=== PATIENT | male | born 1955 | race Caucasian/White ===

== ENCOUNTER → 2017-01-08 10:03 | Outpatient (CLI) | payer MEDICARE | END | disposition home or self-care (01) | LOC: D.CT 10:03 | DX: R91.8 Other nonspecific abnormal finding of lung field (principal) ==

== ENCOUNTER 2017-02-24 19:08 | Emergency (ER) | payer MEDICARE ==
[2017-02-24 21:05] LABS: BASOPHILS 0.1 % (0-2); EOSINOPHILS 1.4 % (0-7); HEMATOCRIT 45.2 % (42.0-54.0); HEMOGLOBIN 15.1 g/dL (13.5-17.5); IMMATURE GRANULOCYTES 0.4 % (0-5); LYMPHOCYTES 21.6 % (15-50); MCH 31.1 pg (26.0-34.0); MCHC 33.4 g/dL (31.0-37.0); MCV 93.2 fL (80.0-100.0); MEAN PLATELET VOLUME 10.6 fL (7.4-10.4); MONOCYTES 7.5 % (2-11); PLATELET COUNT 234 10x3/uL (130-400); RBC 4.85 10x6/uL (4.20-6.10); RDW 13.1 % (11.5-14.5); WBC 9.3 10x3/uL (4.8-10.8)
[2017-02-24 21:29] LABS: ALBUMIN 3.7 g/dL (3.4-5.0); ANION GAP 12.8 mmol/L (8-16); BILIRUBIN - TOTAL 0.63 mg/dL (0.2-1.3); CALCIUM 9.8 mg/dL (8.5-10.1); CARBON DIOXIDE 26.4 mmol/L (21.0-32.0); CREATININE - SERUM 1.3 mg/dL (0.6-1.3); POTASSIUM - SERUM 4.2 mmol/L (3.5-5.1); PROTEIN - SERUM 7.1 g/dL (6.4-8.2)
== END 2017-02-24 21:30 | disposition home or self-care (01) ==
LOC: D.ER 19:08
PROVIDERS: Nurse Practitioner Family
DX: S02.2XXA Fracture of nasal bones, initial encounter for closed fracture (principal); W19.XXXA Unspecified fall, initial encounter; Y93.89 Activity, other specified; Y92.019 Unspecified place in single-family (private) house as the place of occurrence of the external cause; F31.9 Bipolar disorder, unspecified; F41.9 Anxiety disorder, unspecified; K21.9 Gastro-esophageal reflux disease without esophagitis; F17.200 Nicotine dependence, unspecified, uncomplicated

== ENCOUNTER → 2017-03-17 08:58 | Outpatient (CLI) | payer MEDICARE | END | disposition home or self-care (01) | LOC: D.CT 08:58 | DX: R93.8 Abnormal findings on diagnostic imaging of other specified body structures (principal) ==

== ENCOUNTER 2017-05-20 07:49 | Outpatient (CLI) | payer MEDICARE ==
[~2017-05-20] VITALS: Ht 181.6 cm; Wt 104.5 kg
--- NOTE | ~2017-05-20 | OP ---
PATIENT NAME: JL DYKES MEDICAL RECORD: [id number] :55 LOCATION:[facility] ADMISSION DATE: SURGEON: ISAAC TAI MD OPERATION DATE: 05/20/17 DATE OF OPERATION: 05/20/2017 PROCEDURE: Fiberoptic bronchoscopy. INDICATION: Mass, right middle lobe. Procedure was carried out to inspect the airway and to get specimen for histopathology and cytology. MONITORING: EKG, pulse, and blood pressure were monitored throughout the procedure. MEDICATIONS: Versed 8 mg IV in divided doses, fentanyl 100 mcg IV in divided doses, atropine 0.6 mg. PROCEDURE IN DETAIL: After obtaining conscious sedation, the fiberoptic bronchoscope was easily passed through the mouth. The epiglottis was normal. The vocal cords were normal, moving equally on phonation. The main trachea was normal. The glenn was sharp. There was fresh blood in the right main bronchus. The left main bronchus was normal. The subsegment to the left upper lobe lingula and left lower lobe within normal range. No endobronchial lesion was seen. Fresh blood in the right bronchus intermedius and the blood was coming from the medial segment of the right middle lobe. After using cold saline, the lesion was visualized, but there was still small fresh blood oozing out. The right lower lobe subsegments were within normal range. Specimen endobronchial biopsy times 1 from the medial segment of the right middle lobe was obtained and sent for histopathology. Washing was obtained from the right middle lobe, right lower lobe and sent for cytology, routine culture and sensitivity, AFB and fungus. Complication was nearly 5 blood loss before stopping the procedure, the active bleeding was stopped using cold saline as well as epinephrine diluted in normal saline. TRANSINT:[id number] Voice Confirmation ID: [id number] DOCUMENT ID: [id number] ISAAC TAI MD CC: VIKA GARNICA DO [id number] DICTATION DATE: 05/20/17 1104 [employer] TECHNICIAN: 05/20/17 1318 [facility] [address] [place] [id number]
[2017-05-20] MEDS ORDERED: PROTONIX40 MG PO (08:36)
[2017-05-20] MEDS ORDERED: CLARITIN 10 MG10 MG PO (08:36)
[2017-05-20] MEDS ORDERED: LITHIUM CARBON300 MG PO (08:37)
[2017-05-20] MEDS ORDERED: INDERAL10 MG PO (08:37)
[2017-05-20] MEDS ORDERED: DEPAKOTE500 MG PO (08:37)
[2017-05-20] MEDS ORDERED: PROZAC10 MG PO (08:38)
[2017-05-20] MEDS ORDERED: BUPROPION HCL100 MG PO (08:39)
[2017-05-20] MEDS ORDERED: COLACE100 MG PO (08:39)
[2017-05-20 08:41] VITALS: BP 105/63; Ht 181.6 cm; Wt 104.5 kg
[2017-05-20 08:41] LABS: HEMATOCRIT 42.9 % (42.0-54.0); LYMPHOCYTES 35.7 % (15-50); MCH 31.3 pg (26.0-34.0); MCV 89.6 fL (80.0-100.0); MEAN PLATELET VOLUME 9.3 fL (7.4-10.4); NEUTROPHILS 57.1 % (40-80); PLATELET COUNT 256 10x3/uL (130-400); RBC 4.79 10x6/uL (4.20-6.10); RDW 12.3 % (11.5-14.5); WBC 9.1 10x3/uL (4.8-10.8)
[2017-05-20 08:51] LABS: APTT 31.6 SECONDS (22.8-39.4); INR 0.96 (0.85-1.17); PROTIME 12.6 SECONDS (11.6-15.0)
[2017-05-20] MEDS ORDERED: SEROQUEL25 MG PO (09:05)
--- NOTE | 2017-05-20 11:04 | NUR ---
4.7 SEC XRAY TIME.
[2017-05-21 20:08] LABS: ACID FAST SMEAR Negative (()); AFB SPECIMEN PROCESSING Concentration (())
[2017-05-22 12:17] LABS: FUNGUS STAIN Final report (())
== END 2017-05-20 13:45 | disposition home or self-care (01) ==
LOC: D.OPS 07:49
PROVIDERS: Internal Medicine Pulmonary Disease
DX: C34.90 Malignant neoplasm of unspecified part of unspecified bronchus or lung (principal); C61 Malignant neoplasm of prostate; F17.200 Nicotine dependence, unspecified, uncomplicated; J44.9 Chronic obstructive pulmonary disease, unspecified; F31.9 Bipolar disorder, unspecified; Z01.812 Encounter for preprocedural laboratory examination

== ENCOUNTER → 2017-06-11 12:08 | Outpatient (CLI) | payer MEDICARE ==
[2017-05-20 08:41] VITALS: BMI 31.7
[~2017-06-11 12:08] MED LIST: BUPROPION HCL100 MG PO; CLARITIN 10 MG10 MG PO; COLACE100 MG PO; DEPAKOTE500 MG PO; INDERAL10 MG PO; LITHIUM CARBON300 MG PO; PROTONIX40 MG PO; PROZAC10 MG PO; SEROQUEL25 MG PO
== END | disposition home or self-care (01) ==
LOC: D.ECHO 12:08 → D.RT 14:00
DX: I10 Essential (primary) hypertension (principal); R91.8 Other nonspecific abnormal finding of lung field

== ENCOUNTER 2017-06-30 08:43 | Emergency (ER) | payer MEDICARE ==
[2017-05-20 08:41] VITALS: BMI 31.7
[2017-06-30 09:28] LABS: BASOPHILS 0.2 % (0-2); EOSINOPHILS 3.4 % (0-7); HEMATOCRIT 38.4 % (42.0-54.0); HEMOGLOBIN 12.9 g/dL (13.5-17.5); IMMATURE GRANULOCYTES 0.2 % (0-5); LYMPHOCYTES 14.8 % (15-50); MCH 31.4 pg (26.0-34.0); MCHC 33.6 g/dL (31.0-37.0); MCV 93.4 fL (80.0-100.0); MEAN PLATELET VOLUME 9.3 fL (7.4-10.4); MONOCYTES 11.8 % (2-11); NEUTROPHILS 69.6 % (40-80); PLATELET COUNT 237 10x3/uL (130-400); RBC 4.11 10x6/uL (4.20-6.10); WBC 9.2 10x3/uL (4.8-10.8)
[2017-06-30 09:49] LABS: ALKALINE PHOSPHATASE 57 U/L (46-116); ALT (SGPT) 17 U/L (10-68); BILIRUBIN - TOTAL 0.55 mg/dL (0.2-1.3); CALC OSMOLALITY 277 mosm/kg (275-300); CALCIUM 8.9 mg/dL (8.5-10.1); CARBON DIOXIDE 26.2 mmol/L (21.0-32.0); CHLORIDE - SERUM 106 mmol/L (98-107); CREATININE - SERUM 1.2 mg/dL (0.6-1.3); GLUCOSE 104 mg/dL (74-106); POTASSIUM - SERUM 4.1 mmol/L (3.5-5.1); PROTEIN - SERUM 6.6 g/dL (6.4-8.2); SODIUM 140 mmol/L (136-145); UREA NITROGEN 10 mg/dL (7-18); eGFR NON AFRICAN AMERICAN 65 mL/min (90-120)
[2017-06-30 10:00] LABS: CKMB 2.1 U/L (0.0-3.6); CREATINE KINASE 241 UL (21-232); PRO BNP 242 pg/mL (0-125)
[2017-06-30 10:01] LABS: TROPONIN-I < 0.017 ng/mL (0.000-0.060)
[2017-06-30 10:02] LABS: UDS - AMPHET NEGATIVE QUAL (NEGATIVE); UDS - BARB NEGATIVE QUAL (NEGATIVE); UDS - BENZO NEGATIVE QUAL (NEGATIVE); UDS - COCAINE NEGATIVE QUAL (NEGATIVE); UDS - METH NEGATIVE QUAL (NEGATIVE); UDS - OPIATE NEGATIVE QUAL (NEGATIVE); UDS - PCP NEGATIVE QUAL (NEGATIVE); UDS - THC POSITIVE QUAL (NEGATIVE)
[2017-06-30 10:10] LABS: APPEARANCE CLEAR (CLEAR); COLOR DK YELLOW (YELLOW); SPECIFIC GRAVITY 1.015 (1.005-1.020)
[2017-06-30 10:11] LABS: BACTERIA FEW /hpf (NONE SEEN); BILIRUBIN NEGATIVE (NEGATIVE); EPITHELIAL CELLS 0-5 /hpf (0-5); GLUCOSE NEGATIVE (NEGATIVE); KETONE MODERATE mg/dL (NEGATIVE); LEUKOCYTE ESTERASE TRACE (NEGATIVE); MUCUS <1+ /lpf (NONE SEEN); NITRITE NEGATIVE (NEGATIVE); PROTEIN NEGATIVE (NEGATIVE); WHITE CELLS - URINE 0-5 /hpf (0-5)
== END 2017-06-30 12:16 | disposition home or self-care (01) ==
LOC: D.ER 08:43
PROVIDERS: Family Medicine
DX: R53.1 Weakness (principal); L03.90 Cellulitis, unspecified; F17.200 Nicotine dependence, unspecified, uncomplicated; K21.9 Gastro-esophageal reflux disease without esophagitis

== ENCOUNTER 2017-07-03 13:33 | Emergency (ER) | payer MEDICARE ==
[2017-05-20 08:41] VITALS: BMI 31.7
== END 2017-07-03 17:06 | disposition home or self-care (01) ==
LOC: D.ER 13:33
DX: R60.0 Localized edema (principal); I87.2 Venous insufficiency (chronic) (peripheral); F17.200 Nicotine dependence, unspecified, uncomplicated

== ENCOUNTER 2018-05-29 03:54 | Emergency (ER) | payer MEDICARE ==
[~2018-05-29] VITALS: Ht 181.6 cm; Wt 87.7 kg
[2018-05-29 04:00] VITALS: BP 139/80; Ht 181.6 cm; Wt 87.7 kg
[2018-05-29] MEDS ORDERED: ZYRTEC10 MG (04:02)
== END 2018-05-29 05:00 | disposition home or self-care (01) ==
LOC: D.ER 03:54
DX: R06.00 Dyspnea, unspecified (principal); I10 Essential (primary) hypertension; I50.9 Heart failure, unspecified; Z85.46 Personal history of malignant neoplasm of prostate; F17.200 Nicotine dependence, unspecified, uncomplicated

== ENCOUNTER 2018-06-07 15:36 | Emergency (ER) | payer MEDICARE ==
[~2018-06-07] VITALS: Ht 181.6 cm; Wt 87.7 kg
[~2018-06-07 15:36] MED LIST changes: +ZYRTEC10 MG
[2018-06-07 15:50] VITALS: Ht 181.6 cm; Wt 87.7 kg
[2018-06-07 16:24] LABS: BASOPHILS 0.2 % (0-2); EOSINOPHILS 2.9 % (0-7); HEMATOCRIT 38.8 % (42.0-54.0); HEMOGLOBIN 12.7 g/dL (13.5-17.5); IMMATURE GRANULOCYTES 0.2 % (0-5); LYMPHOCYTES 14.4 % (15-50); MCH 32.9 pg (26.0-34.0); MCHC 32.7 g/dL (31.0-37.0); MCV 100.5 fL (80.0-100.0); MEAN PLATELET VOLUME 9.3 fL (7.4-10.4); MONOCYTES 7.7 % (2-11); NEUTROPHILS 74.6 % (40-80); PLATELET COUNT 275 10x3/uL (130-400); RBC 3.86 10x6/uL (4.20-6.10); RDW 13.9 % (11.5-14.5)
[2018-06-07 16:45] LABS: APPEARANCE CLEAR (CLEAR); BILIRUBIN NEGATIVE (NEGATIVE); COLOR YELLOW (YELLOW); GLUCOSE NEGATIVE (NEGATIVE); KETONE NEGATIVE (NEGATIVE); NITRITE NEGATIVE (NEGATIVE); PROTEIN NEGATIVE (NEGATIVE); UROBILINOGEN NORMAL (NORMAL)
[2018-06-07 16:51] LABS: UDS - AMPHET NEGATIVE QUAL (NEGATIVE); UDS - BARB NEGATIVE QUAL (NEGATIVE); UDS - BENZO NEGATIVE QUAL (NEGATIVE); UDS - COCAINE NEGATIVE QUAL (NEGATIVE); UDS - OPIATE NEGATIVE QUAL (NEGATIVE); UDS - PCP NEGATIVE QUAL (NEGATIVE); UDS - THC NEGATIVE QUAL (NEGATIVE)
[2018-06-07 16:52] LABS: ALBUMIN 3.4 g/dL (3.4-5.0); ALKALINE PHOSPHATASE 57 U/L (46-116); ALT (SGPT) 31 U/L (10-68); BILIRUBIN - TOTAL 0.53 mg/dL (0.2-1.3); CALC OSMOLALITY 281 mosm/kg (275-300); CARBON DIOXIDE 23.3 mmol/L (21.0-32.0); CHLORIDE - SERUM 108 mmol/L (98-107); CREATININE - SERUM 0.9 mg/dL (0.6-1.3); GLUCOSE 104 mg/dL (74-106); POTASSIUM - SERUM 3.9 mmol/L (3.5-5.1); PROTEIN - SERUM 7.2 g/dL (6.4-8.2); SODIUM 139 mmol/L (136-145); UREA NITROGEN 23 mg/dL (7-18); eGFR NON AFRICAN AMERICAN > 90 mL/min (90-120)
[2018-06-07 16:58] LABS: THYROID STIMULATING HORMONE 2.96 uIU/mL (0.36-3.74)
[2018-06-07 22:05] VITALS: BP 143/79
== END 2018-06-07 22:36 ==
LOC: D.ER 15:36
PROVIDERS: Family Medicine
DX: R45.850 Homicidal ideations (principal); F23 Brief psychotic disorder; Z73.3 Stress, not elsewhere classified; I10 Essential (primary) hypertension; I50.9 Heart failure, unspecified; F17.200 Nicotine dependence, unspecified, uncomplicated

== ENCOUNTER 2018-06-17 08:16 | Emergency (ER) | payer MEDICARE ==
[~2018-06-17] VITALS: Ht 181.6 cm; Wt 84.1 kg
[2018-06-17 08:20] VITALS: BP 139/72; Ht 181.6 cm; Wt 84.1 kg
== END 2018-06-17 09:14 | disposition home or self-care (01) ==
LOC: D.ER 08:16
DX: T17.920A Food in respiratory tract, part unspecified causing asphyxiation, initial encounter (principal); X58.XXXA Exposure to other specified factors, initial encounter; Y93.89 Activity, other specified; Y92.511 Restaurant or cafe as the place of occurrence of the external cause; T17.928A Food in respiratory tract, part unspecified causing other injury, initial encounter; I11.0 Hypertensive heart disease with heart failure; I50.9 Heart failure, unspecified; F17.200 Nicotine dependence, unspecified, uncomplicated

== ENCOUNTER 2018-06-17 17:31 | Emergency (ER) | payer MEDICARE ==
[2018-06-17 08:20] VITALS: BMI 25.4
== END 2018-06-17 17:35 | disposition left against medical advice (07) ==
LOC: D.ER 17:31
DX: T17.920A Food in respiratory tract, part unspecified causing asphyxiation, initial encounter (principal); X58.XXXA Exposure to other specified factors, initial encounter; Y93.89 Activity, other specified; Y92.511 Restaurant or cafe as the place of occurrence of the external cause; T17.928A Food in respiratory tract, part unspecified causing other injury, initial encounter; I10 Essential (primary) hypertension; I50.9 Heart failure, unspecified; F17.200 Nicotine dependence, unspecified, uncomplicated